=== PATIENT | male | born 1940 | race Caucasian/White ===

== ENCOUNTER 2017-06-12 12:02 | Emergency (ER) | payer OTHER, BC ==
--- NOTE | 2017-06-12 13:30 | RAD REPORT ---
EXAM DESCRIPTION: VAS - Lower Extremity Artery Uni Ltd - 06/12/2017 1:07 pm CLINICAL HISTORY: Left leg pain and swelling COMPARISON: None FINDINGS: The waveform of the left common femoral, superficial femoral, popliteal, posterior tibial and dorsalis pedis arteries are biphasic. Mild plaque is seen within the arteries. A high-grade stenosis is not visualized. An occlusion is not seen. 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
--- NOTE | 2017-06-12 14:36 | ER ---
Nurse's Notes [facility] Name: Harshil Holloway Age: 76 yrs Sex: Male : 1940 Arrival Date: 06/12/2017 Time: 12:07 Bed 20 Private MD: Diagnosis: Cellulitis of left lower limb Presentation: 06/12 12:08 Presenting complaint: Patient states: i hurt my L lower leg last June 09; was here hj and was D/C'd; now the L lower leg is swollen and red and painful;. Transition of care: patient was not received from another setting of care. Onset of symptoms was June 12, 2017. Care prior to arrival: None. 12:08 Method Of Arrival: Ambulatory hj 12:08 Acuity: FELIPE 4 hj Triage Assessment: 12:13 General: Appears in no apparent distress. uncomfortable, Behavior is calm, cooperative, hj appropriate for age. Pain: Complains of pain in left leg. Historical: - Allergies: 12:12 Iodine; hj - Home Meds: 12:13 alprazolam 0.5 mg Oral tab 1 tab TID prn [Active]; amiodarone 200 mg Oral tab 1 tab hj once daily [Active]; amlodipine oral [Active]; aspirin 81 mg Oral TbEC 1 tab once daily [Active]; atorvastatin 20 mg Oral tab 1 tab once daily [Active]; carvedilol 12.5 mg Oral tab 1 tab 2 times per day [Active]; carvedilol Oral [Active]; cyclobenzaprine 5 mg Oral tab 1 tab twice a day [Active]; escitalopram oxalate Oral [Active]; furosemide 40 mg Oral tab 1 tab 2 times per day [Active]; gabapentin 100 mg Oral cap 1 caps 3 times per day [Active]; levothyroxine 50 mcg tab 1 tab once daily [Active]; meclizine 25 mg Oral tab 1 tab 2 times per day [Active]; memantine Oral [Active]; montelukast 10 mg Oral tab 1 tab once daily [Active]; OXYGEN 2L PER NC BEDTIME [Active]; Plavix Oral [Active]; potassium chloride 10 mEq Oral TbER 1 tab once daily [Active]; tramadol 50 mg Oral tab 1 tab BID PRN [Active]; turmeric root extract 500 mg Oral cap daily [Active]; - PMHx: 12:12 Anxiety; CHF; Chronic pain; Hyperlipidemia; Hypertension; Hypothyroidism; insomnia; hj - PSHx: 12:12 CABG; Appendectomy; hj - Immunization history:: Adult Immunizations up to date. - Social history:: Smoking status: Patient/guardian denies using tobacco. Screenin:50 Abuse screen: Denies threats or abuse. Nutritional screening: No deficits noted. em Tuberculosis screening: No symptoms or risk factors identified. Fall Risk Fall in past 12 months (25 points). Secondary diagnosis (15 points) impaired mobility, Ambulatory Aid- Crutches/Cane/Walker (15 pts). Total Lopez Fall Scale indicates High Risk Score (45 or more points). Side Rails Up X 2 Placed Close to Nursing Station Family Present and informed to notify staff if the need to leave the bedside. Assessment: 13:50 General: Appears in no apparent distress. comfortable, Behavior is calm, cooperative, em Denies fever, fatigue. Pain: Complains of pain in left leg Pain currently is 0 out of 10 on a pain scale. at worst was 5 out of 10 on a pain scale. Pain began 2-3 days ago. Neuro: Level of Consciousness is awake, alert, obeys commands, Oriented to person, place, time, situation. Cardiovascular: Heart tones S1 S2 present Capillary refill < 3 seconds Patient's skin is warm and dry. Respiratory: Airway is patent Respiratory effort is even, unlabored, Respiratory pattern is regular, symmetrical, Breath sounds are clear bilaterally. GI: Abdomen is round. : Urine is clear. EENT: No signs and/or symptoms were reported regarding the EENT system. Derm: Wound noted left leg warm and redness noted to the left leg Parent/caregiver reports the patient having reports swelling since the , only painful when walking. Musculoskeletal: Range of motion: intact in all extremities. 14:00 Reassessment: Patient appears in no apparent distress at this time. I agree with the iw above assessment by Edouard Jean LVN. 14:36 Reassessment: Patient appears in no apparent distress at this time. Patient and/or em family updated on plan of care and expected duration. Pain level reassessed. Patient is alert, oriented x 3, equal unlabored respirations, skin warm/dry/pink. Patient denies pain at this time. Vital Signs: 12:14 BP 163 / 68; Pulse 59; Resp 18; Temp 98.3(TE); Pulse Ox 97% on R/A; Weight 75.75 kg; hj Height 5 ft. 7 in. (170.18 cm); Pain 2/10; 14:00 BP 191 / 85; Pulse 78; Resp 18; Temp 98.4(TE); Pulse Ox 99% on R/A; Pain 0/10; em 12:14 Body Mass Index 26.16 (75.75 kg, 170.18 cm) ED Course: 12:07 Patient arrived in ED. mr 12:10 Triage completed. hj 12:14 Arm band placed on right wrist. hj 13:07 US Lower Extremity (Artery Uni Ltd): R/O DVT In Process Unspecified. EDMS 13:39 Ramo Cisneros PA is PHCP. cp 13:39 Ramo Nowak MD is Attending Physician. cp 13:41 Edouard Jean LVN is Primary Nurse. em 13:50 Patient has correct armband on for positive identification. Call light in reach. Side em rails up X2. Adult w/ patient. 13:50 No provider procedures requiring assistance completed. em 14:58 Patient did not have IV access during this emergency room visit. em Administered Medications: No medications were administered Outcome: 14:35 Discharge ordered by MD. cp 14:58 Discharged to home ambulatory. em 14:58 Condition: good 14:58 Discharge instructions given to patient, Instructed on discharge instructions, follow up and referral plans. medication usage, Demonstrated understanding of instructions, follow-up care, medications, Prescriptions given X 1. 14:58 Patient left the ED. em Signatures: Dispatcher [employer] [facility] Dalila Pelaez mr Edouard Jean LVN [employer] em Monica Salgado RN JERSON Dat Khoury RN RN Ramo Huber PA PA cp Corrections: (The following items were deleted from the chart) 12:16 12:12 Allergies: NKA; hj hj 12:16 12:14 Pulse 59bpm; Resp 18bpm; Pulse Ox 97% RA; Temp 98.3F Temporal; 75.75 kg; Height 5 hj ft. 7 in.; BMI: 26.1; Pain 2/10; hj
--- NOTE | 2017-06-12 14:36 | EDPHYS ---
Physician Documentation [facility] Name: Harshil Holloway Age: 76 yrs Sex: Male : 1940 Arrival Date: 06/12/2017 Time: 12:07 Bed 20 Private MD: ED Physician Ramo Nowak HPI: 06/12 14:00 This 76 yrs old Male presents to ER via Ambulatory with complaints of Leg cp Swelling. 14:00 The patient presents with swelling, erythema. The complaints affect the left palma. cp Context: resulted from the patient falling, the patient can fully bear weight, the patient is able to ambulate. 14:00 Onset: The symptoms/episode began/occurred 2 day(s) ago. cp 14:00 Associated signs and symptoms: Pertinent positives: swelling, warmth, Pertinent cp negatives fever. Treatment prior to arrival includes: no previous treatment. Severity of symptoms: in the emergency department the symptoms are unchanged, despite home interventions. Historical: - Allergies: 12:12 Iodine; hj - Home Meds: 12:13 alprazolam 0.5 mg Oral tab 1 tab TID prn [Active]; amiodarone 200 mg Oral tab 1 tab hj once daily [Active]; amlodipine oral [Active]; aspirin 81 mg Oral TbEC 1 tab once daily [Active]; atorvastatin 20 mg Oral tab 1 tab once daily [Active]; carvedilol 12.5 mg Oral tab 1 tab 2 times per day [Active]; carvedilol Oral [Active]; cyclobenzaprine 5 mg Oral tab 1 tab twice a day [Active]; escitalopram oxalate Oral [Active]; furosemide 40 mg Oral tab 1 tab 2 times per day [Active]; gabapentin 100 mg Oral cap 1 caps 3 times per day [Active]; levothyroxine 50 mcg tab 1 tab once daily [Active]; meclizine 25 mg Oral tab 1 tab 2 times per day [Active]; memantine Oral [Active]; montelukast 10 mg Oral tab 1 tab once daily [Active]; OXYGEN 2L PER NC BEDTIME [Active]; Plavix Oral [Active]; potassium chloride 10 mEq Oral TbER 1 tab once daily [Active]; tramadol 50 mg Oral tab 1 tab BID PRN [Active]; turmeric root extract 500 mg Oral cap daily [Active]; - PMHx: 12:12 Anxiety; CHF; Chronic pain; Hyperlipidemia; Hypertension; Hypothyroidism; insomnia; hj - PSHx: 12:12 CABG; Appendectomy; hj - Immunization history:: Adult Immunizations up to date. - Social history:: Smoking status: Patient/guardian denies using tobacco. ROS: 14:05 Constitutional: Negative for body aches, chills, fever, poor PO intake. cp 14:05 Eyes: Negative for injury, pain, redness, and discharge. cp 14:05 Cardiovascular: Negative for chest pain. 14:05 Respiratory: Negative for cough, shortness of breath, wheezing. 14:05 Abdomen/GI: Negative for abdominal pain, vomiting, diarrhea, constipation. 14:05 Skin: Positive for cellulitis, erythema, swelling, of the left palma, Negative for abscesses. 14:05 All other systems are negative. Exam: 14:12 Constitutional: The patient appears in no acute distress, alert, awake, non-toxic, well cp developed, well nourished. 14:12 Head/Face: Normocephalic, atraumatic. cp 14:12 Eyes: Periorbital structures: appear normal, Conjunctiva: normal, no exudate, no cp injection, Lids and lashes: appear normal, bilaterally. 14:12 ENT: External ear(s): are unremarkable, Nose: is normal, Mouth: Lips: moist, Oral cp mucosa: moist, Posterior pharynx: is normal, airway is patent. 14:12 Chest/axilla: Inspection: normal. 14:12 Cardiovascular: Rate: bradycardic, Rhythm: regular. 14:12 Respiratory: the patient does not display signs of respiratory distress, Respirations: normal, no use of accessory muscles. 14:12 Abdomen/GI: Exam negative for discomfort, distension, guarding, Inspection: abdomen appears normal. 14:12 Musculoskeletal/extremity: mild swelling noted left lower leg extending to heel of foot. 14:12 Skin: cellulitis, that is mild, well demarcated, on the left palma. Vital Signs: 12:14 BP 163 / 68; Pulse 59; Resp 18; Temp 98.3(TE); Pulse Ox 97% on R/A; Weight 75.75 kg; hj Height 5 ft. 7 in. (170.18 cm); Pain 2/10; 14:00 BP 191 / 85; Pulse 78; Resp 18; Temp 98.4(TE); Pulse Ox 99% on R/A; Pain 0/10; em 12:14 Body Mass Index 26.16 (75.75 kg, 170.18 cm) MDM: 13:40 Patient medically screened. cp 14:30 Differential diagnosis: contusion, abscess, cellulitis. cp 14:33 Data reviewed: vital signs, nurses notes, radiologic studies, ultrasound. cp 14:33 Counseling: I had a detailed discussion with the patient and/or guardian regarding: the cp historical points, exam findings, and any diagnostic results supporting the discharge/admit diagnosis, radiology results, the need for outpatient follow up, a family practitioner, to return to the emergency department if symptoms worsen or persist or if there are any questions or concerns that arise at home. 06/12 12:18 Order name: US Lower Extremity (Artery Uni Ltd): R/O DVT; Complete Time: 14:08 Administered Medications: No medications were administered Disposition: 15:48 Co-signature as Attending Physician, Ramo Nowak MD I agree with the assessment and xander plan of care. Disposition: 06/12/17 14:35 Discharged to Home. Impression: Cellulitis of left lower limb. - Condition is Stable. - Discharge Instructions: Cellulitis. - Prescriptions for Keflex 500 mg Oral Capsule - take 1 capsule by ORAL route every 6 hours for 10 days; 40 capsule. - Medication Reconciliation Form, Thank You Letter, Antibiotic Education, Prescription Opioid Use form. - Follow up: Private Physician; When: 48 Hours; Reason: Recheck today's complaints. - Problem is new. - Symptoms are unchanged. Signatures: Dispatcher [employer] Ramo Medina MD MD cha Munoz, Edgar, ALTERATIONS SEWER ALTERATIONS SEWER Dat Alanis, RN RN Ramo Huber, PA PA cp Corrections: (The following items were deleted from the chart) 12:16 12:12 Allergies: NKA; hj hj 14:21 14:10 Extremity Venous Uni Ltd+VAS.RAD.BRZ ordered. EDCA EDMS
[2017-06-12 15:04] VITALS: BP 191/85; TEMP 98.4; O2SAT 99
== END 2017-06-12 14:58 | disposition home or self-care (01) ==
LOC: ER 12:02
DX: L03.116 Cellulitis of left lower limb (principal); I10 Essential (primary) hypertension; E78.5 Hyperlipidemia, unspecified; I50.9 Heart failure, unspecified; E03.9 Hypothyroidism, unspecified; F41.9 Anxiety disorder, unspecified; Z95.1 Presence of aortocoronary bypass graft; Z79.01 Long term (current) use of anticoagulants; Z79.82 Long term (current) use of aspirin; Z91.048 Other nonmedicinal substance allergy status
CPT/HCPCS: 93926; 99283

== ENCOUNTER 2017-10-06 12:56 | Observation (INO) | payer OTHER, BC ==
[2017-10-06] MEDS ORDERED: ASPIRIN 81 MG CHEWABLE TABLET ONE (13:02)
[2017-10-06] MEDS ORDERED: NITROGLYCERIN 0.4 MG/TAB SL ONE (13:09)
[2017-10-06 13:23] LABS: Absolute Lymphocytes (CBC) 1.6 K/uL (0.7-4.9); Absolute Monocytes 0.8 K/uL (0.1-1.3); Absolute Neutrophil 5.6 K/uL (1.8-8.0); Basophils % 0.5 % (0-1.3); Eosinophils % 2.2 % (0-4.4); Hematocrit 41.8 % (39.6-49.0); MCV 89.6 fL (80-100); MPV 8.9 fL (7.6-11.3); Monocytes % 9.3 % (3.3-12.3); RBC Red Blood Cell Count 4.67 M/uL (4.33-5.43)
[2017-10-06 13:44] LABS: Albumin 3.3 g/dL (3.4-5.0); Bilirubin Direct 0.2 mg/dL (0-0.2); Bilirubin Total 0.7 mg/dL (0.2-1.0); Magnesium 2.3 mg/dL (1.8-2.4); Potassium 3.3 mmol/L (3.5-5.1); Protein, Total 8.1 g/dL (6.4-8.2)
[2017-10-06] MEDS ORDERED: FENTANYL CITR 100 MCG/2 ML ONE ×2 (14:09→15:01)
--- NOTE | 2017-10-06 14:20 | RAD REPORT ---
EXAM DESCRIPTION: RAD - Chest Single View - 10/06/2017 1:52 pm CLINICAL HISTORY: Chest pain COMPARISON: June 06 TECHNIQUE: AP portable chest image was obtained 1347 hours . FINDINGS: Lung volumes are relatively low. No peripheral mass or consolidation. No vascular engorgem ent seen. Interstitial markings are prominent but not clearly different from prior imaging. Cardiac s ilhouette is prominent, accentuated by shallow inspiration portable imaging. No pneumothorax or large pleural effusion. Minimal costophrenic angle blunting changes are present probably the affects of jim dy habitus and shallow inspiration portable technique. Sternotomy wires are in place. Cardiac surgica l changes noted. No gross bony abnormality seen. No acute aortic findings suspected. IMPRESSION: Lung markings and heart are prominent but not clearly different from prior imaging. No peripheral consolidation or mass seen. No significant failure or volume overload.
[2017-10-06 14:46] LABS: Protime INR 1.01
[2017-10-06 14:55] LABS: Blood Morphology Comment NOT SEEN (NOT SEEN); Platelet Estimate ADEQ; Urine White Blood Cell Casts OK
--- NOTE | 2017-10-06 15:26 | RAD REPORT ---
EXAM DESCRIPTION: CT - Angio Aorta For Dissection - 10/06/2017 2:37 pm CLINICAL HISTORY: Chest pain, shortness of breath, history of CHF, history of CABG surgery COMPARISON: AP chest same date, CT aorta April 2008 TECHNIQUE: Dynamically enhanced 3 mm thick images of the chest, abdomen, and upper pelvis were obtai mavis during administration of approximately 150mL Isovue 370 IV contrast. Sagittal and coronal reconst ruction images were generated and reviewed. Exam utilizes a protocol to evaluate entire course of the aorta. All CT scans are performed using dose optimization technique as appropriate and may include automated exposure control or mA/KV adjustment according to patient size. FINDINGS: Ascending aorta is 3.9 x 3.5 cm. There are postsurgical changes to the aorta related to CA BG procedure. Aortic arch is 2.7 cm in diameter. Mid descending thoracic aorta is 2.5 cm. Infrarenal aorta is 1.7 cm in diameter. No dissection, aneurysm or acute aortic finding. Lower thoracic aorta is tortuous. Aortic arch is bovine configuration. No origin stenosis. No vertebral artery origins steno ses seen. Pulmonary arteries are normal as well. Mild cardiomegaly is present. No pericardial thickening or eff usion. Scarring changes are present. No focal infiltrate, mass or pleural effusion. No pleural thickening or pleural based mass. There is no pneumothorax. No abnormal mediastinal or hilar mass or lymphadenopathy seen. No chest wall mass or abnormal axillar y lymphadenopathy. Celiac, SMA and renal arteries show no suspicious findings. Solid abdominal viscera show no suspiciou s findings. Gallbladder is absent. No biliary tree dilatation. Left adrenal gland nodularity has not change from 2008. No mass or abnormal lymphadenopathy. No free air, free fluid or inflammatory stran ding. No acute urinary bladder finding. Patient has a large hiatal hernia. This is increased signific antly since 2008. No GE junction acute finding. There is prominent colonic diverticulosis without div erticulitis. No acute colon finding. Fat extends into the origin of the left inguinal canal. No large mass or bulky lymphadenopathy. The patient has extensive degenerative and postsurgical changes to the spine extending from T11-S1 we re pedicle screws and posterior hardware are in place. Pedicle screws and rods create artifact that l imits assessment. No gross finding than acute thoracic process. IMPRESSION: No aneurysm, dissection or acute aortic finding. No pulmonary artery abnormality. Patient has a large hiatal hernia that has increased significantly from 2008. Chronic interstitial lung disease with no superimposed failure, infiltrate or mass. No acute finding of the abdomen or pelvis suspected.
--- NOTE | 2017-10-06 15:53 | EDPHYS ---
Physician Documentation [facility] Name: Harshil Holloway Age: 77 yrs Sex: Male : 1940 Arrival Date: 10/06/2017 Time: 12:57 Bed 3 Private MD: ED Physician Karthik Whipple HPI: 10/06 15:45 This 77 yrs old Male presents to ER via Wheelchair with complaints of chest jr8 pain. 15:45 The patient or guardian reports chest pain that is located primarily in the substernal jr8 area. Onset: acutely, today. The pain radiates to left jaw, back. Associated signs and symptoms: The patient has no apparent associated signs or symptoms. The chest pain is described as squeezing, stabbing. Duration: The patient or guardian reports multiple episodes. Modifying factors: The symptoms are alleviated by nothing. the symptoms are aggravated by nothing. Severity of pain: At its worst the pain was moderate. The patient has experienced a previous episode. The patient has not recently seen a physician. 15:51 Patient clenching chest upon arrival complaining of chest pain. Has extensive cardiac jr8 history. Sees Dr. Jj on outpatient basis . Historical: - Allergies: 14:05 Iodine; tw2 - Home Meds: 14:05 alprazolam 0.5 mg Oral tab 1 tab TID prn [Active]; amiodarone 200 mg Oral tab 1 tab tw2 once daily [Active]; amlodipine oral [Active]; aspirin 81 mg Oral TbEC 1 tab once daily [Active]; atorvastatin 20 mg Oral tab 1 tab once daily [Active]; carvedilol 12.5 mg Oral tab 1 tab 2 times per day [Active]; carvedilol Oral [Active]; cyclobenzaprine 5 mg Oral tab 1 tab twice a day [Active]; escitalopram oxalate Oral [Active]; furosemide 40 mg Oral tab 1 tab 2 times per day [Active]; gabapentin 100 mg Oral cap 1 caps 3 times per day [Active]; levothyroxine 50 mcg tab 1 tab once daily [Active]; meclizine 25 mg Oral tab 1 tab 2 times per day [Active]; memantine Oral [Active]; montelukast 10 mg Oral tab 1 tab once daily [Active]; OXYGEN 2L PER NC BEDTIME [Active]; Plavix Oral [Active]; potassium chloride 10 mEq Oral TbER 1 tab once daily [Active]; tramadol 50 mg Oral tab 1 tab BID PRN [Active]; turmeric root extract 500 mg Oral cap daily [Active]; - PMHx: 14:05 Anxiety; CHF; Chronic pain; Hyperlipidemia; tw2 14:07 insomnia; Hypothyroidism; Hypertension; tw2 - PSHx: 14:05 CABG; Appendectomy; tw2 - Immunization history:: Adult Immunizations. - Social history:: Smoking status: Patient/guardian denies using tobacco. - Ebola Screening: : Patient denies travel to an Ebola-affected area in the 21 days before illness onset. ROS: 15:45 Eyes: Negative for injury, pain, redness, and discharge, ENT: Negative for injury, jr8 pain, and discharge, Neck: Negative for injury, pain, and swelling, Respiratory: Negative for shortness of breath, cough, wheezing, and pleuritic chest pain, Abdomen/GI: Negative for abdominal pain, nausea, vomiting, diarrhea, and constipation, Back: Negative for injury and pain, MS/Extremity: Negative for injury and deformity, Skin: Negative for injury, rash, and discoloration, Neuro: Negative for headache, weakness, numbness, tingling, and seizure. 15:45 Cardiovascular: Positive for chest pain, Negative for edema, orthopnea, palpitations, paroxysmal nocturnal dyspnea. Exam: 15:45 Eyes: Pupils equal round and reactive to light, extra-ocular motions intact. Lids and jr8 lashes normal. Conjunctiva and sclera are non-icteric and not injected. Cornea within normal limits. Periorbital areas with no swelling, redness, or edema. ENT: Nares patent. No nasal discharge, no septal abnormalities noted. Tympanic membranes are normal and external auditory canals are clear. Oropharynx with no redness, swelling, or masses, exudates, or evidence of obstruction, uvula midline. Mucous membranes moist. Neck: Trachea midline, no thyromegaly or masses palpated, and no cervical lymphadenopathy. Supple, full range of motion without nuchal rigidity, or vertebral point tenderness. No Meningismus. Cardiovascular: Regular rate and rhythm with a normal S1 and S2. No gallops, murmurs, or rubs. Normal PMI, no JVD. No pulse deficits. Respiratory: Lungs have equal breath sounds bilaterally, clear to auscultation and percussion. No rales, rhonchi or wheezes noted. No increased work of breathing, no retractions or nasal flaring. Abdomen/GI: Soft, non-tender, with normal bowel sounds. No distension or tympany. No guarding or rebound. No evidence of tenderness throughout. Back: No spinal tenderness. No costovertebral tenderness. Full range of motion. Skin: Warm, dry with normal turgor. Normal color with no rashes, no lesions, and no evidence of cellulitis. MS/ Extremity: Pulses equal, no cyanosis. Neurovascular intact. Full, normal range of motion. Neuro: Awake and alert, GCS 15, oriented to person, place, time, and situation. Cranial nerves II-XII grossly intact. Motor strength 5/5 in all extremities. Sensory grossly intact. Cerebellar exam normal. Normal gait. Vital Signs: 13:02 BP 197 / 93; Pulse 63; Resp 18; Temp 97.5(A); Pulse Ox 99% on R/A; Pain 10/10; tw2 14:07 BP 160 / 76; Pulse 64; Resp 17; Pulse Ox 100% on 2 lpm NC; tw2 15:39 BP 173 / 82; Pulse 60; Resp 13; Pulse Ox 100% on R/A; tw2 16:53 BP 196 / 91; Pulse 74; Resp 17; Pulse Ox 99% on R/A; hb 17:23 BP 153 / 70; Pulse 78; Resp 17; Pulse Ox 100% on R/A; hb 18:23 BP 140 / 72; Pulse 68; Resp 18; Pulse Ox 99% on R/A; tw2 19:15 BP 132 / 75; Pulse 69; Resp 17; Pulse Ox 98% on R/A; tl2 20:09 BP 147 / 68; Pulse 66; Resp 16; Pulse Ox 99% ; bp 13:02 pt placed on o2 via nc at 2L tw2 MDM: 13:00 Patient medically screened. jr8 15:51 The patient was given aspirin in the Emergency Department. Data reviewed: vital signs, jr8 nurses notes, lab test result(s), EKG, radiologic studies, plain films, and as a result, I will admit patient. Data interpreted: Pulse oximetry: on room air is 100 %. Interpretation: normal. Counseling: I had a detailed discussion with the patient and/or guardian regarding: the historical points, exam findings, and any diagnostic results supporting the discharge/admit diagnosis, lab results, radiology results, the need for further work-up and treatment in the hospital. 10/06 13:01 Order name: Basic Metabolic Panel; Complete Time: 14:02 [facility] 10/06 13:01 Order name: CBC with Diff; Complete Time: 15:15 [facility] 10/06 13:01 Order name: LFT's; Complete Time: 14:02 [facility] 10/06 13:01 Order name: Magnesium; Complete Time: 14:02 [facility] 10/06 13:01 Order name: NT PRO-BNP; Complete Time: 14:02 [facility] 10/06 13:01 Order name: PT-INR; Complete Time: 15:15 [facility] 10/06 13:01 Order name: Ptt, Activated; Complete Time: 15:15 [facility] 10/06 13:01 Order name: Troponin (emerg Dept Use Only); Complete Time: 14:02 [facility] 10/06 13:31 Order name: CBC Smear Scan; Complete Time: 15:15 [facility] 10/06 16:26 Order name: Basic Metabolic Panel [facility] 10/06 16:26 Order name: Basic Metabolic Panel [facility] 10/06 16:26 Order name: CBC with Automated Diff [facility] 10/06 16:26 Order name: CBC with Automated Diff [facility] 10/06 16:26 Order name: Lipid Profile [facility] 10/06 13:01 Order name: XRAY Chest (1 view); Complete Time: 14:29 [facility] 10/06 13:01 Order name: EKG; Complete Time: 13:02 [facility] 10/06 13:01 Order name: Cardiac monitoring; Complete Time: 13:02 [facility] 10/06 13:01 Order name: EKG - Nurse/Tech; Complete Time: 13:02 [facility] 10/06 14:05 Order name: CT Aorta for Dissection; Complete Time: 15:38 [facility] 10/06 16:26 Order name: CONS Physician Consult [facility] 10/06 16:26 Order name: Heart Healthy [facility] 10/06 16:26 Order name: Lipid Profile [facility] 10/06 16:26 Order name: Troponin I [facility] 10/06 16:26 Order name: Troponin I; Complete Time: 17:43 [facility] 10/06 16:26 Order name: Troponin I [facility] 10/06 13:01 Order name: IV Saline Lock; Complete Time: 13:07 8 10/06 13:01 Order name: Labs collected and sent; Complete Time: 13:10/06 13:01 Order name: O2 Per Protocol; Complete Time: 13:10/06 13:01 Order name: O2 Sat Monitoring; Complete Time: 13:8 10/06 13:01 Order name: Urine Dipstick-Ancillary (obtain specimen); Complete Time: 18:04 8 Administered Medications: 13:02 Drug: Aspirin Chewable Tablet 324 mg Route: PO; tw2 13:50 Follow up: Response: No adverse reaction tw2 13:07 Drug: Nitroglycerin 0.4 mg Route: Sublingual; tw2 13:50 Follow up: Response: No adverse reaction tw2 13:50 CANCELLED (Duplicate Order): Aspirin Chewable Tablet 324 mg PO once; 81 mg tablets x 4 tw2 14:09 Drug: fentaNYL (PF) 25 mcg Route: IVP; Site: right antecubital; hb 20:11 Follow up: Response: Pain is decreased bp 15:01 Drug: fentaNYL (PF) 50 mcg Route: IVP; Site: right antecubital; hb 20:11 Follow up: Response: Pain is decreased bp Disposition: 10/07 07:15 Co-signature as Attending Physician, Karthik Whipple MD. rn Disposition: 10/06/17 15:53 Hospitalization ordered by Jarett Elkins for Observation. Preliminary diagnosis is Chest pain, unspecified. - Bed requested for Telemetry/MedSurg (observation). - Status is Observation. bp - Condition is Stable. - Problem is new. - Symptoms have improved. UTI on Admission? No Signatures: Dispatcher [employer] [facility] Sara Alves RN RN dw Karthik Whipple MD MD rn Roszak, Josh, PA PA jr8 Whit Patel RN RN Indiana Rutherford RN RN tw2 Alexx Summers RN RN bp Corrections: (The following items were deleted from the chart) 10/06 13:50 13:01 Aspirin Chewable Tablet 324 mg PO once; 81 mg tablets x 4 ordered. tw2 tw2 18:09 15:53 Hospitalization Ordered by Jarett Elkins MD for Observation. Preliminary diagnosis dw is Chest pain, unspecified. Bed requested for Telemetry/MedSurg (observation). Status is Observation. Condition is Stable. Problem is new. Symptoms have improved. UTI on Admission? No. jr8 20:12 18:09 10/06/2017 15:53 Hospitalization Ordered by Jarett Elkins MD for Observation. bp Preliminary diagnosis is Chest pain, unspecified. Bed requested for Telemetry/MedSurg (observation). Status is Observation. Condition is Stable. Problem is new. Symptoms have improved. UTI on Admission? No. dw
--- NOTE | 2017-10-06 15:53 | ER ---
Nurse's Notes [facility] Name: Harshil Holloway Age: 77 yrs Sex: Male : 1940 Arrival Date: 10/06/2017 Time: 12:57 Bed 3 Private MD: Diagnosis: Chest pain, unspecified Presentation: 10/06 13:03 Presenting complaint: Patient states: i was working outside and started having chest tw2 pain, i have some blockages and have had a bypass. Transition of care: patient was not received from another setting of care. Onset of symptoms was October 06, 2017. Risk Assessment: Do you want to hurt yourself or someone else? Patient reports no desire to harm self or others. Initial Sepsis Screen: Does the patient meet any 2 criteria? No. Patient's initial sepsis screen is negative. Does the patient have a suspected source of infection? No. Patient's initial sepsis screen is negative. Care prior to arrival: None. 13:03 Method Of Arrival: Wheelchair tw2 13:03 Acuity: FELIPE 3 tw2 Historical: - Allergies: 14:05 Iodine; tw2 - Home Meds: 14:05 alprazolam 0.5 mg Oral tab 1 tab TID prn [Active]; amiodarone 200 mg Oral tab 1 tab tw2 once daily [Active]; amlodipine oral [Active]; aspirin 81 mg Oral TbEC 1 tab once daily [Active]; atorvastatin 20 mg Oral tab 1 tab once daily [Active]; carvedilol 12.5 mg Oral tab 1 tab 2 times per day [Active]; carvedilol Oral [Active]; cyclobenzaprine 5 mg Oral tab 1 tab twice a day [Active]; escitalopram oxalate Oral [Active]; furosemide 40 mg Oral tab 1 tab 2 times per day [Active]; gabapentin 100 mg Oral cap 1 caps 3 times per day [Active]; levothyroxine 50 mcg tab 1 tab once daily [Active]; meclizine 25 mg Oral tab 1 tab 2 times per day [Active]; memantine Oral [Active]; montelukast 10 mg Oral tab 1 tab once daily [Active]; OXYGEN 2L PER NC BEDTIME [Active]; Plavix Oral [Active]; potassium chloride 10 mEq Oral TbER 1 tab once daily [Active]; tramadol 50 mg Oral tab 1 tab BID PRN [Active]; turmeric root extract 500 mg Oral cap daily [Active]; - PMHx: 14:05 Anxiety; CHF; Chronic pain; Hyperlipidemia; tw2 14:07 insomnia; Hypothyroidism; Hypertension; tw2 - PSHx: 14:05 CABG; Appendectomy; tw2 - Immunization history:: Adult Immunizations. - Social history:: Smoking status: Patient/guardian denies using tobacco. - Ebola Screening: : Patient denies travel to an Ebola-affected area in the 21 days before illness onset. Screenin:51 Abuse screen: Denies threats or abuse. Nutritional screening: No deficits noted. tw2 Tuberculosis screening: No symptoms or risk factors identified. Fall Risk None identified. Assessment: 13:05 General: Appears uncomfortable, Behavior is calm, cooperative, appropriate for age. tw2 Pain: Complains of pain in chest. Neuro: Level of Consciousness is awake, alert, obeys commands, Oriented to person, place, time, situation. Cardiovascular: Reports chest pain, Denies shortness of breath, Heart tones S1 S2 Patient's skin is warm and dry. Respiratory: Airway is patent Respiratory effort is even, unlabored, Respiratory pattern is regular, symmetrical, Breath sounds are clear bilaterally. GI: No signs and/or symptoms were reported involving the gastrointestinal system. Abdomen is round non-distended, Bowel sounds present X 4 quads. : No signs and/or symptoms were reported regarding the genitourinary system. EENT: No signs and/or symptoms were reported regarding the EENT system. Derm: No signs and/or symptoms reported regarding the dermatologic system. Skin is intact, is healthy with good turgor, Skin is dry, Skin temperature is warm. Musculoskeletal: Range of motion: intact in all extremities. 14:07 Reassessment: Patient appears in no apparent distress at this time. Patient and/or tw2 family updated on plan of care and expected duration. Pain level reassessed. Patient is alert, oriented x 3, equal unlabored respirations, skin warm/dry/pink. pt c/o back pain at this time, medicated as ordered. 14:22 Reassessment: Pt transported to CT via stretcher with tech. Family remains at bedside. hb 14:41 Reassessment: Pt returned from CT via stretcher with tech. NAD. Family at bedside. hb Reassessment:. 15:40 Reassessment: Patient appears in no apparent distress at this time. Patient and/or tw2 family updated on plan of care and expected duration. Pain level reassessed. 16:30 Reassessment: Patient appears in no apparent distress at this time. Patient and/or hb family updated on plan of care and expected duration. Pain level reassessed. Patient is alert, oriented x 3, equal unlabored respirations, skin warm/dry/pink. Admission ordered, awaiting room assignment at this time. Family remains at bedside. 17:26 Reassessment: Patient appears in no apparent distress at this time. Patient and/or hb family updated on plan of care and expected duration. Pain level reassessed. Patient is alert, oriented x 3, equal unlabored respirations, skin warm/dry/pink. Admission ordered, awaiting room assignment at this time. Repeat troponin sent. 19:06 Reassessment: RECD REPORT FROM GRACE ARTHUR. 77YO WM P/W CP, EXTENSIVE CARDIAC HX. ADMIT IN bp PROCESS. 20:10 Reassessment: PT ADMIT TO 425, PT PEDRITO WITH PCT. bp Vital Signs: 13:02 BP 197 / 93; Pulse 63; Resp 18; Temp 97.5(A); Pulse Ox 99% on R/A; Pain 10/10; tw2 14:07 BP 160 / 76; Pulse 64; Resp 17; Pulse Ox 100% on 2 lpm NC; tw2 15:39 BP 173 / 82; Pulse 60; Resp 13; Pulse Ox 100% on R/A; tw2 16:53 BP 196 / 91; Pulse 74; Resp 17; Pulse Ox 99% on R/A; hb 17:23 BP 153 / 70; Pulse 78; Resp 17; Pulse Ox 100% on R/A; hb 18:23 BP 140 / 72; Pulse 68; Resp 18; Pulse Ox 99% on R/A; tw2 19:15 BP 132 / 75; Pulse 69; Resp 17; Pulse Ox 98% on R/A; tl2 20:09 BP 147 / 68; Pulse 66; Resp 16; Pulse Ox 99% ; bp 13:02 pt placed on o2 via nc at 2L tw2 ED Course: 12:57 Patient arrived in ED. bd 13:00 George Rodriguez PA is PHCP. jr8 13:00 Karthik Whipple MD is Attending Physician. jr8 13:01 Whit Patel, RN is Primary Nurse. hb 13:02 Placed in gown. Bed in low position. case monitor on. Pulse ox on. NIBP on. tw2 13:04 Triage completed. tw2 13:04 Arm band placed on. tw2 13:05 EKG done, by field artillery targeting technician. reviewed by George PRICE. sm3 13:15 Inserted saline lock: 20 gauge in right antecubital area, using aseptic technique. hb Blood collected. 13:52 XRAY Chest (1 view) In Process Unspecified. EDMS 14:[address] via stretcher. vr 14:36 CT completed. Patient tolerated procedure well. Patient moved back from CT. vr 14:37 CT Aorta for Dissection In Process Unspecified. EDMS 15:52 Jarett Elkins MD is Hospitalizing Provider. jr8 17:00 IV discontinued, intact. hb 17:20 Inserted saline lock: 22 gauge in left forearm, using aseptic technique. hb 19:01 Report given to JERSON Choi. tw2 19:07 No provider procedures requiring assistance completed. Patient admitted, IV remains in bp place. Administered Medications: 13:02 Drug: Aspirin Chewable Tablet 324 mg Route: PO; tw2 13:50 Follow up: Response: No adverse reaction tw2 13:07 Drug: Nitroglycerin 0.4 mg Route: Sublingual; tw2 13:50 Follow up: Response: No adverse reaction tw2 13:50 CANCELLED (Duplicate Order): Aspirin Chewable Tablet 324 mg PO once; 81 mg tablets x 4 tw2 14:09 Drug: fentaNYL (PF) 25 mcg Route: IVP; Site: right antecubital; hb 20:11 Follow up: Response: Pain is decreased bp 15:01 Drug: fentaNYL (PF) 50 mcg Route: IVP; Site: right antecubital; hb 20:11 Follow up: Response: Pain is decreased bp Outcome: 15:53 Decision to Hospitalize by Provider. jr8 20:08 Admitted to Tele accompanied by tech, family with patient, via wheelchair, room 425, bp with chart, Report called to EVERARDO ARTHUR 20:08 Condition: stable 20:08 Instructed on the need for admit. 20:12 Patient left the ED. bp Signatures: Dispatcher [employer] EDMS Claire Jiménez Victoria vr Roszak, Josh, PA PA jr8 Whit Patel, RN RN hb Grace Escoto, RN RN tw2 Linda Miranda, RN RN tl2 Alexx Summers, RN RN bp Jose Francisco, Jyoti 3
[2017-10-06] MEDS ORDERED: ACETAMINOPHEN 500 MG TAB PO PRN (16:22)
[2017-10-06] MEDS ORDERED: NITROGLYCERIN 0.4 MG/TAB SL PRN (16:22)
[2017-10-06] MEDS ORDERED: POTASSIUM CL SA 10 MEQ TAB PO ONE (17:07)
[2017-10-06] MEDS ORDERED: MELATONIN 5 MG TABLET PO PRN (17:08)
[2017-10-06] MEDS ORDERED: ENOXAPARIN 40 MG/0.4 ML SQ SCH (18:00)
--- NOTE | 2017-10-06 18:38 | HP ---
Date of Admission: 10/06/2017 Primary Care Physician: Dr. Hernandez. Consultants: Ezra Jj MD, cardiology. Chief Complaint: Chest pain. Code Status: DNR. The patient has a living will. History Of Present Illness: The patient is a 77-year-old male with past medical history of severe co ronary artery disease, status post CABG and stents with recent cardiac catheterization in May that showed patent SONI to the LAD with collaterals to the RCA and the circ. His vein graft to th e circumflex is occluded, the saphenous vein graft to the RCA was also occluded, and the patient is o n maximal medical therapy. He does take multiple blood thinners. He is unable to tell me, which one s he takes. The patient was in his usual state of health at rest while shopping when he had sudden o nset of sharp retrosternal chest pain, which was stabbing in nature, radiating to his back. It laste d for approximately 30 minutes. The patient states this is different than his pain that he has exper ienced with his previous MIs. However, it also radiated to his jaw and due to the duration and inten sity of the pain, the patient became concerned. His symptoms are constant, moderate, progressively w orsening. No alleviating or aggravating factors. The patient came into the ER for further evaluatio n. Upon arrival, his vital signs did show elevated blood pressure 197/93. The patient was medicated with aspirin, nitroglycerin, and fentanyl and the patient had some improvement in his symptoms. The patient's workup revealed a negative troponin level. Potassium was low at 3.3. White count was nor mal. The patient otherwise denies any fevers, chills, cough, sputum production. The patient was ref erred for admission for chest pain, rule out ACS. When seen in the ER, he was awake, alert, oriented x3. Some mild distress. 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 Past Surgical History: Coronary artery bypass graft, valve replacement, has mitral annuloplasty, has a ralph in the spine, cataract surgery, benign tumor removed from his throat, left shoulder surgery an d cardiac stents. Allergies: TO IODINE, CAUSES HIVES. Medications: List reviewed. Social History: The patient denies any tobacco use, alcohol use, or illicit drug use. The patient n ormally is able to get around the house without any assistive ambulatory devices, however, for longer periods of time such as outdoors, he does utilize a walker or electronic wheelchair due to his short ness of breath. The patient has good social support. Has [facility]. Family History: Father had heart disease and hypertension. Mother also had heart disease and hypert ension. Review of Systems: An 11-point system reviewed, negative except as per HPI. Physical Examination: Vital Signs: Blood pressure 197/93, pulse 63, respirations 18, temperature 97.5, O2 99% on room air. General: Awake, alert, oriented x3. Some mild distress. Elderly male. HEENT: Normocephalic, atraumatic. PERRLA. EOMI. Dry mucous membranes. Oropharynx is clear. Conj unctivae anicteric. Poor dentition. Neck: Supple. No JVD. Trachea midline. CV: S1, S2. No murmurs. Regular rate and rhythm. Peripheral pulses are weak bilaterally. Respiratory: Moving air well bilaterally. No wheezing or stridor. No use of accessory muscles Kathy rointestinal: Abdomen is soft, nontender, nondistended. Positive bowel sounds. No guarding or rigi dity. Extremities: No clubbing, cyanosis, or edema. No calf tenderness. Neuro: Cranial nerves 2 through 12 intact grossly. No focal neurological deficit. Speech is normal . Strength is symmetric in bilateral upper and lower extremities. Sensation intact to light touch. Psych: mood is somewhat anxious. Affect congruent with mood. Insight and judgment are fair. Laboratory Data: INR 1.01. WBC 8.2, H and H 14 and 41.8, and platelets 224. Sodium 143, potassium 3.3, chloride 104, CO2 35, BUN 19, creatinine 1.1, glucose 96, calcium 8.6, and magnesium 2.3. Tropo awilda 0.02. BNP 1314. Albumin 3.3. CT scan of the aorta shows no aneurysm, dissection, or acute aort ic finding. No pulmonary artery abnormality. Does have a large hiatal hernia, increased significant ly since 2008. No GE junction acute finding. Chest x-ray personally reviewed shows lung markings in heart are prominent, but not clearly different from prior imaging. No peripheral consolidation or m ass. No significant failure or volume overload. Assessment And Plan: A 77-year-old male with; 1.Unstable angina. The patient has history of severe coronary artery disease. The pain is improved with initial treatment. We will continue on chest pain guidelines, beta-don, ARLETH inhibitor, sta tin, aspirin. We will resume home medications as appropriate. We will consult Cardiology. Serial c ardiac enzymes and EKG. We will give nitro p.r.n. and morphine for chest pain. Initial troponin and EKG are unremarkable. 2.Hypokalemia. We will replace and monitor. 3.Coronary artery disease, status post coronary artery bypass graft, belkofski artery, belkofski heart, wi th angina. 4.Essential hypertension, uncontrolled. We will add p.r.n. medications. Resume home medications as appropriate. 5.Congestive heart failure. EF in the 50s. Diastolic heart failure, compensated. We will continue with fluid-restricted diet. Daily weights. 6.Degenerative disk disease with hardware in the back. 7.Gastrointestinal and deep venous thrombosis prophylaxis with PPI and Lovenox. Plan: Admit the patient to Med-Surg, [facility] as observation. MICAH Voice ID: [id number]
--- NOTE | 2017-10-06 18:49 | EKG ---
Test Date: 2017-10-06 Test Time: 12:56:49 Building And Construction Manager: NADJA MEASUREMENT RESULTS: Intervals: Rate: 65 NM: 188 QRSD: 116 QT: 458 QTc: 476 Amory: P: 39 NM: 188 QRS: -9 T: 84 INTERPRETIVE STATEMENTS: Normal sinus rhythm with sinus arrhythmia Left ventricular hypertrophy with QRS widening Inferior infarct, age undetermined Abnormal ECG Compared to ECG 06/06/2017 19:00:52 Left ventricular hypertrophy now present Ventricular premature complex(es) no longer present ST (T wave) deviation no longer present Myocardial infarct finding still present Electronically Signed On 10-06-17 18:47:16 CDT by Abiodun Roy
[2017-10-06 20:44] VITALS: BMI 23.8
[2017-10-06] MEDS ORDERED: ATORVASTATIN 20 MG TAB PO SCH (21:00)
[2017-10-06] MEDS: CARVEDILOL 12.5 MG TAB PO SCH (22:05)
[2017-10-07] MEDS: MORPHINE 4 MG/ML SYR IV PRN ×2 (00:59→05:33)
[2017-10-07] MEDS: CARVEDILOL 12.5 MG TAB PO SCH (05:32)
[2017-10-07 05:56] LABS: Potassium 4.1 mmol/L (3.5-5.1)
[2017-10-07 06:02] LABS: Absolute Lymphocytes (CBC) 1.5 K/uL (0.7-4.9); Absolute Monocytes 0.8 K/uL (0.1-1.3); Absolute Neutrophil 6.8 K/uL (1.8-8.0); Basophils % 0.3 % (0-1.3); Eosinophils % 1.9 % (0-4.4); Lymphocytes % 16.2 % (15.3-44.8); MCH 30.1 pg (27.0-35.0); MCV 89.4 fL (80-100); MPV 8.9 fL (7.6-11.3); Monocytes % 8.2 % (3.3-12.3); RBC Red Blood Cell Count 4.13 M/uL (4.33-5.43)
[2017-10-07] MEDS ORDERED: ASPIRIN EC 81 MG TAB PO SCH (09:00)
[2017-10-07] MEDS ORDERED: LISINOPRIL 10 MG TAB PO SCH (09:00)
--- NOTE | 2017-10-07 09:54 | P.DS ---
Admission Date: 10/06/17 Discharge Date: 10/07/17 Disposition: ROUTINE DISCHARGE Discharge Condition: FAIR Consultations: Cardiology Brief History of Present Illness: Patient is 77 years of age with a history of coronary artery disease admitted with sudden onset of chest pain in by Cardiology Hospital Course: He did well no new problems at the time of discharge no chest pain or shortness of breath seen by Cardiology dose of Coreg to be increased patient had mild hypokalemia normal troponins no acute changes on EKG vital signs stable at the time of discharge she denies any shortness of breath or chest pain Physical exam vital signs stable chest clear cardiovascular system os sounds normal extremities no edema CT dissection was negative is blood pressure was elevated lisinopril 5 mg also added Vital Signs/Physical Exam: Temp Pulse Resp BP Pulse Ox 97 F 53 18 106/56 L 96 10/07/17 08:00 10/07/17 08:31 10/07/17 08:00 10/07/17 08:31 10/07/17 08:00 Laboratory Data at Discharge: WBC 9.3 K/uL (4.3-10.9) 10/07/17 05:18 Hgb 12.5 g/dL (13.6-17.9) L 10/07/17 05:18 Hct 37.0 % (39.6-49.0) L 10/07/17 05:18 Plt Count 181 K/uL (152-406) 10/07/17 05:18 PT 11.9 SECONDS (9.5-12.5) 10/06/17 13:05 INR 1.01 10/06/17 13:05 APTT 27.8 SECONDS (24.3-36.9) 10/06/17 13:05 Sodium 144 mmol/L (136-145) 10/07/17 05:18 Potassium 4.1 mmol/L (3.5-5.1) 10/07/17 05:18 BUN 20 mg/dL (7-18) H 10/07/17 05:18 Creatinine 0.90 mg/dL (0.55-1.3) 10/07/17 05:18 Glucose 117 mg/dL (74-106) H 10/07/17 05:18 Magnesium 2.3 mg/dL (1.8-2.4) 10/06/17 13:05 Total Bilirubin 0.7 mg/dL (0.2-1.0) 10/06/17 13:05 AST 24 U/L (15-37) 10/06/17 13:05 ALT 28 U/L (12-78) 10/06/17 13:05 Alkaline Phosphatase 124 U/L (45-117) H 10/06/17 13:05 Troponin I 0.02 ng/mL (0.0-0.045) 10/07/17 00:39 Triglycerides 71 mg/dL (<150) 10/07/17 05:18 Cholesterol 111 mg/dL (<200) 10/07/17 05:18 HDL Cholesterol 40 mg/dL (40-60) 10/07/17 05:18 Cholesterol/HDL Ratio 2.78 10/07/17 05:18 Home Medications: Amiodarone HCl [Cordarone*] 200 mg PO DAILY 12/22/13 Atorvastatin Calcium [Lipitor*] 20 mg PO DAILY 12/22/13 Gabapentin [Neurontin*] 300 mg PO BID 12/22/13 Levothyroxine Sodium [Unithroid] 50 mcg PO DAILY 04/30/14 traMADol HCL [Ultram*] 50 mg PO TID 12/25/16 ALPRAZolam [Xanax*] 0.5 mg PO BID 04/22/17 Furosemide [Lasix*] 40 mg PO BID 06/07/17 Pantoprazole Sodium [Protonix] 40 mg PO DAILY #30 tablet. 06/09/17 Carvedilol [Coreg*] 12.5 mg PO BID #60 tab 10/07/17 Lisinopril 5 mg PO DAILY #30 tablet 10/07/17 Meclizine HCl 25 mg PO BID 10/07/17 Memantine HCl 5 mg PO DAILY 10/07/17 Montelukast Sodium 10 mg PO DAILY 10/07/17 New Medications: Carvedilol [Coreg*] 12.5 mg PO BID #60 tab Lisinopril 5 mg PO DAILY #30 tablet
[2017-10-07 12:10] VITALS: BP 124/61; TEMP 97.5
--- NOTE | 2017-10-07 12:45 | CON ---
Date of Consultation: 10/07/2017 Reason For Consultation: Chest pain. History Of Present Illness: Mr. Holloway is a 77-year-old white male. He is a patient of ours in the [facility]. He has a history of coronary artery disease. He has a history of hypertension, anxiety, jocelyn roesophageal reflux disease, dyslipidemia, and congestive heart failure. Dr. Jj did a heart cath eterization on him in May 2017. He has inoperable coronary artery disease. He has had CABG in the past, has completely occluded [place] vessels of the LAD, RCA and circumflex. All his vein grafts ar e occluded, but he has a patent SONI to the LAD with collaterals from the distal LAD to the RCA and c ircumflex territory. We do expect him to have chronic angina. He came in with some angina symptoms, but negative troponin, negative EKG, negative chest x-ray. His BNP was 1314. He has an ejection fr action of 50% by echo in May 2017. No PND, orthopnea, pedal edema, palpitations, or syncope report ed. Allergies: HE IS ALLERGIC TO IODINE. Review of Systems: Negative. Social History: Negative. He sees Dr. Larkin in [place] for family care. Family History: His family history is noncontributory. Medications: His medications at home include Xanax, amiodarone, Lasix, Coreg, Lipitor, Protonix, and Neurontin. Physical Examination: Vital Signs: Stable. He was afebrile. HEENT: Negative. Neck: Supple without any bruit, lymphadenopathy, JVD, or thyromegaly. Chest: Clear to auscultation and percussion. Cardiac: Exam revealed a regular rhythm and rate without any murmurs, gallops, or rubs. Abdomen: Benign. Extremities: Revealed no clubbing, cyanosis, or edema. Diagnostic Data: As stated earlier. Impression And Plan: 1.Chronic coronary artery disease with chronic stable angina. No acute coronary syndrome. I think he can go home. We need to increase his beta-don and if he continues to have pain, we should con marketing operations associate Imdur and/or Ranexa. 2.Atrial fibrillation that has resolved on amiodarone. 3.Anxiety. 4.Chronic systolic congestive heart failure that is mild, on Lasix and Coreg. We will continue thos e. 5.Dyslipidemia, on Lipitor. 6.Gastroesophageal reflux, on Protonix. 7.Chronic coronary artery disease status post coronary artery bypass graft with occlusion of all the graft, all the [place] vessels, patent SONI to the LAD with collaterals to the RCA and circumflex ter ritory. 8.Mr. Holloway can go home whenever it is okay with Dr. Elkins. We will see him in the office in the [place] couple weeks. Beta-blockers need to be increased. JEVON/LAVELL Voice ID: [id number] Report ID: [id number]
[2017-10-07 12:59] VITALS: O2SAT 95
== END 2017-10-07 12:34 | disposition home or self-care (01) ==
LOC: ER 12:56 → ERHOLD 15:53 → 4TH 19:25
PROVIDERS: ADMIT Family Medicine; ATTEND Family Medicine
DX: I25.110 Atherosclerotic heart disease of native coronary artery with unstable angina pectoris (principal); J44.9 Chronic obstructive pulmonary disease, unspecified; E87.6 Hypokalemia; I11.0 Hypertensive heart disease with heart failure; I50.32 Chronic diastolic (congestive) heart failure; Z95.1 Presence of aortocoronary bypass graft; Z85.828 Personal history of other malignant neoplasm of skin; Z95.5 Presence of coronary angioplasty implant and graft
CPT/HCPCS: 36415; 71045; 71275; 74175; 80048 ×2; 80061; 80076; 83735; 83880; 84484 ×3; 85025 ×2; 85610; 85730; 93005; 94760 ×2; 96374; 99285; G0378 ×2; J1650; J3010 ×2; Q9967